=== PATIENT | female | born 1945 | race Caucasian/White ===

== ENCOUNTER 2017-12-30 11:43 | Day surgery (SDC) | payer MEDICARE, OTHER ==
[2017-12-29 13:18] VITALS: BMI 28.4
[2017-12-30 12:20] LABS: Hemoglobin 14.9 g/dL (12.0-16.0); Mean Corpuscular HGB CONC 35.2 g/dL (32.0-36.0); Mean Corpuscular Hemoglobin 33.3 pg (27.0-31.0); Mean Corpuscular Volume 94.7 fL (78.0-98.0); Mean Platelet Volume 7.3 fL (7.4-10.4); Platelet Count 150 thou/uL (130-400); Red Blood Cell (RBC) Count 4.47 mill/uL (4.20-5.40); White Blood Cell (WBC) Count 4.2 thou/uL (4.8-10.8)
[2017-12-30 12:42] LABS: Anion Gap 12 mmol/L (10-20); BUN (Urea Nitrogen) 8 mg/dL (9.8-20.1); Calc. Creatinine Clearance 99 mL/min (70-130); Calcium 9.5 mg/dL (7.8-10.44); Carbon Dioxide 26 mmol/L (23-31); Chloride 98 mmol/L (98-107); Estimated GFR-MDRD 81; Glucose 121 mg/dL (80-115); Potassium 4.2 mmol/L (3.5-5.1); Sodium 132 mmol/L (136-145)
[2017-12-30] MEDS ORDERED: Midazolam HCl 2 mg/2 ml Vial ONE (13:45)
--- NOTE | 2017-12-30 13:55 | EKG ---
Test Reason : PREOP MRI Blood Pressure : / mmHG Vent. Rate : 059 BPM Atrial Rate : 085 BPM P-R Int : 000 ms QRS Dur : 088 ms QT Int : 442 ms P-R-T Axes : 000 071 012 degrees QTc Int : 437 ms Atrial fibrillation with slow ventricular response Abnormal ECG No previous ECGs available Confirmed by AARON GANDHI ([id number]) on 12/30/2017 1:55:24 PM Referred By: JODEE Confirmed By:AARON GANDHI
[2017-12-30] MEDS ORDERED: Lidocaine 1% PF 5 ML VIAL ONE (14:55)
[2017-12-30] MEDS ORDERED: PROPOFOL 200 MG/20 ML VIAL ONE (14:55)
--- NOTE | 2017-12-30 15:39 | MRI ---
MRI LUMBAR SPINE WITHOUT CONTRAST: HISTORY: Lumbar radiculopathy. Chronic back pain. COMPARISON: None. FINDINGS: The aortic contour is nonaneurysmal. No retroperitoneal adenopathy. No hydronephrosis. There is a focal T2 hyperintense focus in the posterior left adrenal cortex with some dependent susce ptibility which may represent hemorrhagic cyst. Small cyst inferior pole right kidney. The paraspinal musculature is symmetric. The conus medullaris terminates near the inferior end plate of L1. There is chronic-appearing compre ssion fracture at T12 with 50% anterior height loss as well as inferior end plate invagination of dis k. There is subsequent posterior disk-osteophyte narrowing the spinal canal which is 9 mm centrally. No significant neural foraminal narrowing. L1-2: Mild disk desiccation. There is chronic fibrous remodeling of the posterior annulus fibrosis. Mild facet arthropathy. No neural foraminal or spinal canal narrowing. L2-3: Mild disk desiccation. Chronic remodeling of the annulus fibrosis. No significant neural for aminal or spinal canal narrowing. L3-4: Moderate degenerative disk space height loss. There is a mild broad-based posterior disk-oste ophyte complex, the largest I the left lateral recess and subforaminal zones. There is moderate to s evere left-sided neural foraminal narrowing. There is also right subforaminal lateral recess posteri or disk protrusion causing moderate right-side neural foraminal narrowing. The spinal canal is narro wed to approximately 5 mm. Moderate to severe facet arthrosis. Abutment of the exiting left and tra versing left-sided nerve roots. L4-5: Moderate degenerative disk space height loss. There is a left subforaminal and lateral recess posterior disk-osteophyte complex causing moderate neural foraminal narrowing. There is also right subforaminal and lateral recess posterior disk-osteophyte complex as well as hypertrophic facet abreu es causing moderate to severe neural foraminal narrowing. There is abutment of the exiting and trave rsing right-sided nerve roots. L5-S1: Broad-based posterior disk protrusion with a central annular fissure. There is moderate face t arthrosis. There is moderate to severe left and moderate to severe right-side neural foraminal ban rowing with abutment of the exiting nerve roots bilaterally and the traversing left-side nerve root. IMPRESSION: Advanced spondylosis as described above. Multilevel neural foraminal spinal canal narrowing. POS: [facility]
== END 2017-12-30 15:58 | disposition home or self-care (01) ==
LOC: SDC/OP 11:43
PROVIDERS: ATTEND Neurological Surgery
DX: M54.16 Radiculopathy, lumbar region (principal); G89.29 Other chronic pain; M54.9 Dorsalgia, unspecified; Z79.01 Long term (current) use of anticoagulants; Z79.84 Long term (current) use of oral hypoglycemic drugs; Z79.899 Other long term (current) drug therapy; Z91.041 Radiographic dye allergy status
CPT/HCPCS: 36415; 72148; 80048; 85027; 93005; 93010; J2001; J2250; J2704